=== PATIENT | male | born 1995 | race African-American/Black ===

== ENCOUNTER 2017-04-18 08:42 | Emergency (ER) | payer SELFPAY ==
[2017-04-18 08:51] VITALS: BP 128/90; PULSE 74; RESP 14; TEMP 98.4; O2SAT 99
--- NOTE | 2017-04-18 09:25 | PD ---
HPI Chief Complaint: Complaint Time Seen by Provider: 08:58 Travel History International Travel<30 days: No Contact w/Intl Traveler<30days: No Traveled to known affect area: No History of Present Illness HPI This is a 21-year-old male who presents to the emergency department with painful urination that has been going on for 3 days, intermittent, moderate severity, associated with pus coming from his penis that started today. He says he has had 3-4 sexual partners in the past 3 months. He denies any fever or chills. PFSH Past Medical History Medical History: Denies Significant Hx Past Surgical History Surgical History: No Previous Surgery Social History Alcohol Use: Yes Tobacco Use: Yes Substance Use: Yes (MARIJUANA) Allergies-Medications (Allergen,Severity, Reaction): Coded Allergies: No Known Allergies (Unverified , 04/18/17) Reported Meds & Prescriptions Reported Meds & Active Scripts Active No Active Prescriptions or Reported Medications Review of Systems General / Constitutional: No: Fever, Chills Gastrointestinal: No: Nausea, Vomiting Physical Exam Narrative GENERAL: Well-appearing, no acute distress, nontoxic SKIN: Warm and dry. HEAD: Atraumatic. Normocephalic. ENT: No nasal bleeding or discharge. Moist mucous membranes MUSCULOSKELETAL: No obvious deformities. Moving all extremities. NEUROLOGICAL: Awake and alert. No obvious cranial nerve deficits. Motor grossly within normal limits. Normal speech. PSYCHIATRIC: Appropriate mood and affect; insight and judgment normal. Data Data Last Documented VS Vital Signs Date Time Temp Pulse Resp B/P (MAP) Pulse Ox O2 Delivery O2 Flow Rate FiO2 04/18/17 08:51 98.4 74 14 128/90 (103) 99 Orders Orders Azithromycin Powd Pack (Zithromax Powd P (04/18/17 09:30) Ceftriaxone Inj (Rocephin Inj) (04/18/17 09:30) Metronidazole (Flagyl) (04/18/17 09:30) Lidocaine 1% Inj (50 Ml) (Xylocaine 1% I (04/18/17 09:30) Ed Discharge Order (04/18/17 09:29) Lidocaine Pf 1% Inj (Xylocaine-Mpf 1% In (04/18/17 09:45) MDM Medical Decision Making Medical Screen Exam Complete: Yes Emergency Medical Condition: Yes Interpretation(s) Afebrile, no tachycardia, normotensive Differential Diagnosis Urethritis Narrative Course This is a 21-year-old male who presents with symptoms classic for urethritis. Patient was treated empirically with ceftriaxone, azithromycin and Flagyl. He was advised to follow-up with the health department for further STD testing. Diagnosis Primary Impression: Urethritis Referrals: [facility] Dept. Patient Instructions: General Instructions Additional Instructions: Follow up with the health department for HIV and syphillis testing Med/Other Pt SpecificInfo: No Change to Meds Scripts No Active Prescriptions or Reported Meds Disposition: 01 DISCHARGE HOME Condition: Stable Hailey Monique MD Apr 18, 2017 09:25
[2017-04-18] MEDS ORDERED: metroNIDAZOLE 500 MG TAB PO ONE (09:30)
[2017-04-18] MEDS ORDERED: cefTRIAXone 250 MG VIAL IM ONE (09:30)
[2017-04-18] MEDS ORDERED: LIDOCAINE HCL 1% 50 ML VIAL XX ONE (09:30)
[2017-04-18] MEDS ORDERED: AZITHROMYCIN PWD FOR SUSP 1 GM PACKET PO ONE (09:30)
[2017-04-18] MEDS ORDERED: LIDOCAINE HCL 1% PF 30 ML VIAL OTHER ONE (09:45)
== END 2017-04-18 10:15 | disposition home or self-care (01) ==
LOC: NEPD 08:42
DX: N34.2 Other urethritis (principal); Z72.0 Tobacco use; F12.90 Cannabis use, unspecified, uncomplicated
CPT/HCPCS: 96372; 99283; J0696

== ENCOUNTER 2017-05-24 20:43 | Emergency (ER) | payer SELFPAY ==
[~2017-05-24] VITALS: Ht 182.9 cm; Wt 65.0 kg
[2017-05-24 21:04] VITALS: BP 141/73; PULSE 59; RESP 16; TEMP 98.6; O2SAT 100
--- NOTE | 2017-05-24 21:44 | PD ---
HPI Chief Complaint: Medical Clearance Time Seen by Provider: 21:34 Travel History International Travel<30 days: No Contact w/Intl Traveler<30days: No Traveled to known affect area: No History of Present Illness HPI 22-year-old male complains of penile discharge. Patient states that his symptoms started yesterday. Patient states that he had unprotected sex recently. Patient denies any abdominal pain low back pain. Patient denies any fever chills. PFSH Social History Alcohol Use: Yes Tobacco Use: Yes Substance Use: Yes (MARIJUANA) Allergies-Medications (Allergen,Severity, Reaction): Coded Allergies: No Known Allergies (Unverified , 05/24/17) Reported Meds & Prescriptions Reported Meds & Active Scripts Active No Active Prescriptions or Reported Medications Review of Systems General / Constitutional: No: Fever Eyes: No: Visual changes HENT: No: Headaches Cardiovascular: No: Chest Pain or Discomfort Respiratory: No: Shortness of Breath Gastrointestinal: No: Abdominal Pain Genitourinary: Positive: Discharge, No: Dysuria Musculoskeletal: No: Pain Skin: No Rash Neurologic: No: Weakness Psychiatric: No: Depression Endocrine: No: Polydipsia Hematologic/Lymphatic: No: Easy Bruising Physical Exam Narrative GENERAL: Well-nourished, well-developed patient. SKIN: Focused skin assessment warm/dry. HEAD: Normocephalic. EYES: No scleral icterus. No injection or drainage. NECK: Supple, trachea midline. No JVD or lymphadenopathy. CARDIOVASCULAR: Regular rate and rhythm without murmurs, gallops, or rubs. RESPIRATORY: Breath sounds equal bilaterally. No accessory muscle use. GASTROINTESTINAL: Abdomen soft, non-tender, nondistended. MUSCULOSKELETAL: No cyanosis, or edema. BACK: Nontender without obvious deformity. No CVA tenderness. exam: Patient has whitish urethral discharge. No penile lesions noted. No tenderness on palpation of the testicle. Data Data Last Documented VS Vital Signs Date Time Temp Pulse Resp B/P (MAP) Pulse Ox O2 Delivery O2 Flow Rate FiO2 05/24/17 21:04 98.6 59 16 141/73 (95) 100 Orders Orders Azithromycin Powd Pack (Zithromax Powd P (05/24/17 21:45) Ceftriaxone Inj (Rocephin Inj) (05/24/17 21:45) Sodium Chloride 0.9% Flush (Ns Flush) (05/24/17 21:45) Lidocaine 1% Inj (50 Ml) (Xylocaine 1% I (05/24/17 21:45) MDM Medical Decision Making Medical Screen Exam Complete: Yes Emergency Medical Condition: Yes Differential Diagnosis Differential diagnosis including urethritis, UTI. Narrative Course 22-year-old male with urethral discharge. Rocephin 250 mg IM. Zithromax 1 g p.o. Diagnosis Primary Impression: Urethritis Patient Instructions: General Instructions Additional Instructions: Follow-up with local physician. Med/Other Pt SpecificInfo: No Meds Exist/No RX given Scripts No Active Prescriptions or Reported Meds Disposition: 01 DISCHARGE HOME Condition: Stable Wilmar Hernandez MD May 24, 2017 21:44
[2017-05-24] MEDS ORDERED: LIDOCAINE HCL 1% 50 ML VIAL XX ONE (21:45)
[2017-05-24] MEDS ORDERED: cefTRIAXone 250 MG VIAL IM ONE (21:45)
[2017-05-24] MEDS ORDERED: SODIUM CHLORIDE 0.9% FLUSH 10 ML FLUSH IVF PRN (21:45)
[2017-05-24] MEDS ORDERED: AZITHROMYCIN PWD FOR SUSP 1 GM PACKET PO ONE (21:45)
== END 2017-05-24 22:09 | disposition home or self-care (01) ==
LOC: NEPD 20:43
DX: N34.2 Other urethritis (principal); F12.90 Cannabis use, unspecified, uncomplicated; Z72.0 Tobacco use
CPT/HCPCS: 96372; 99283; J0696

== ENCOUNTER 2017-06-18 23:15 | Emergency (ER) | payer SELFPAY ==
[~2017-06-18] VITALS: Ht 175.3 cm; Wt 68.0 kg
[2017-06-18 23:33] VITALS: BP 122/65; PULSE 70; RESP 16; TEMP 98.7; O2SAT 98
== END 2017-06-19 02:35 | disposition left against medical advice (07) ==
LOC: NED 23:59
DX: R11.2 Nausea with vomiting, unspecified (principal); Z53.21 Procedure and treatment not carried out due to patient leaving prior to being seen by health care provider
CPT/HCPCS: 99281

== ENCOUNTER 2017-06-26 08:07 | Emergency (ER) | payer SELFPAY ==
[~2017-06-26] VITALS: Ht 182.9 cm; Wt 68.0 kg
[2017-06-26 08:12] VITALS: BP 144/63; PULSE 80; RESP 18; TEMP 97.4; O2SAT 100
--- NOTE | 2017-06-26 08:41 | PD ---
HPI Chief Complaint: Complaint Time Seen by Provider: 08:15 Travel History International Travel<30 days: No Contact w/Intl Traveler<30days: No Traveled to known affect area: No History of Present Illness HPI 22-year-old -[place] male presents emergency department with ongoing purulent penile discharge, mainly first thing in the morning. Mainly before urinating. Patient denies significant dysuria, flank pain, rectal pain, difficulty sitting, or fever or chills. Patient was seen here on May 24 and treated with Rocephin and azithromycin. Patient again went to the health department on the ninth of this month, and was checked for GC chlamydia, and HIV without any positive results. Patient denies having sex with anyone since being treated in May. He denies testicular pain. He has no known drug allergies. [facility] Past Medical History Immunizations Current: Yes Social History Alcohol Use: Yes Tobacco Use: Yes Substance Use: Yes (MARIJUANA) Allergies-Medications (Allergen,Severity, Reaction): Coded Allergies: No Known Allergies (Unverified , 06/26/17) Reported Meds & Prescriptions Reported Meds & Active Scripts Active No Active Prescriptions or Reported Medications Review of Systems Except as stated in HPI: all other systems reviewed are Neg General / Constitutional: No: Fever Eyes: No: Visual changes HENT: No: Headaches Cardiovascular: No: Chest Pain or Discomfort Respiratory: No: Shortness of Breath Gastrointestinal: No: Abdominal Pain Genitourinary: Positive: Discharge, No: Urgency, Frequency, Dysuria, Pelvic Pain, Flank Pain, Dyspareunia Musculoskeletal: No: Pain Skin: No Rash Neurologic: No: Weakness Psychiatric: No: Depression Endocrine: No: Polydipsia Hematologic/Lymphatic: No: Easy Bruising Physical Exam Narrative GENERAL: Patient appears in no acute distress per SKIN: Warm and dry. Normal color. Normal turgor. No rash HEAD: Atraumatic. Normocephalic. EYES: Pupils equal and round. No scleral icterus. No injection or drainage. ENT: No nasal bleeding or discharge. Mucous membranes pink and moist. NECK: Trachea midline. No JVD. CARDIOVASCULAR: Regular rate and rhythm. RESPIRATORY: No accessory muscle use. Clear to auscultation. Breath sounds equal bilaterally. GASTROINTESTINAL: Abdomen soft, non-tender, nondistended. Hepatic and splenic margins not palpable. Genital exam is unremarkable at this time. MUSCULOSKELETAL: Extremities without clubbing, cyanosis, or edema. No obvious deformities. NEUROLOGICAL: Awake and alert. No obvious cranial nerve deficits. Motor grossly within normal limits. Five out of 5 muscle strength in the arms and legs. Normal speech. PSYCHIATRIC: Appropriate mood and affect; insight and judgment normal. Data Data Last Documented VS Vital Signs Date Time Temp Pulse Resp B/P (MAP) Pulse Ox O2 Delivery O2 Flow Rate FiO2 06/26/17 08:12 97.4 80 18 144/63 (90) 100 Orders Orders Urinalysis - C+S If Indicated (06/26/17 08:23) Gc And Chlamydia Pcr (06/26/17 08:23) Ceftriaxone Inj (Rocephin Inj) (06/26/17 08:45) Azithromycin (Zithromax) (06/26/17 08:45) Metronidazole (Flagyl) (06/26/17 08:45) Lidocaine 1% Inj (50 Ml) (Xylocaine 1% I (06/26/17 08:45) MDM Medical Decision Making Medical Screen Exam Complete: Yes Emergency Medical Condition: Yes Medical Record Reviewed: Yes Differential Diagnosis Recurrent GC chlamydia. Prostatitis. Trichomonas. Narrative Course Patient is once again treated with Rocephin 1000 mg IM. Patient is given azithromycin 1000 mg p.o. now. Patient is given Flagyl 1000 mg p.o. now. Patient with continued on Flagyl 500 mg 3 times daily 7 days. Recommend follow-up with urologist if symptoms persist. Diagnosis Primary Impression: Urethritis Referrals: Stanislaw Muniz DO as needed Urologist Patient Instructions: Chlamydia (ED), General Instructions, Gonorrhea (ED), Trichomoniasis (ED) Additional Instructions: Patient is once again treated with Rocephin 1000 mg IM. Patient is given azithromycin 1000 mg p.o. now. Patient is given Flagyl 1000 mg p.o. now. Patient with continued on Flagyl 500 mg 3 times daily 7 days. Recommend follow-up with urologist if symptoms persist. Med/Other Pt SpecificInfo: Prescription(s) given Scripts No Active Prescriptions or Reported Meds Disposition: 01 DISCHARGE HOME Condition: Stable Riccardo Mulligan Jun 26, 2017 08:41
[2017-06-26] MEDS ORDERED: metroNIDAZOLE 500 MG TAB PO ONE (08:45)
[2017-06-26] MEDS ORDERED: AZITHROMYCIN 250 MG TAB PO ONE (08:45)
[2017-06-26] MEDS ORDERED: LIDOCAINE HCL 1% 50 ML VIAL INFIL ONE (08:45)
[2017-06-26 08:55] LABS: BILIRUBIN, URINE NEG (NEG); BLOOD, URINE NEG (NEG); GLUCOSE,URINE NEG (NEG); KETONE, URINE NEG (NEG); NITRITE,URINE NEG (NEG); PH, URINE 6.5 (5.0-8.5); URINE COLOR YELLOW (YELLW/STRAW); URINE LEUKOCYTE ESTERASE NEG (NEG)
[2017-06-26] MEDS ORDERED: LIDOCAINE HCL 1% 20 ML VIAL ONE (09:15)
[2017-06-26] MEDS ORDERED: METR1TAB76 PO (09:59)
== END 2017-06-26 10:06 | disposition home or self-care (01) ==
LOC: NEPD 08:07
DX: N34.2 Other urethritis (principal); Z72.0 Tobacco use
CPT/HCPCS: 81001; 87491; 87591; 96372; 99283; J0696